=== PATIENT | male | born 1960 | race American Indian/Alaskan Native ===

== ENCOUNTER 2022-03-19 11:08 | Outpatient (CLI) | payer OTHER ==
--- NOTE | 2022-03-19 13:38 | XRay Report ---
BILATERAL KNEES 2 VIEWS EACH INDICATION / CLINICAL INFORMATION: BILATERAL KNEE PAIN. COMPARISON: None available. FINDINGS: BONES / JOINT(S): No acute fracture or subluxation. Mild DJD right knee greatest at the medial compar tment. Moderate DJD left knee greatest at the medial compartment. SOFT TISSUES: Atherosclerotic vascular calcification. ADDITIONAL FINDINGS: None. Signer Name: Julian Polanco MD Signed: 03/19/2022 1:34 PM Workstation Name: [id number]
== END 2022-03-19 11:09 | disposition home or self-care (01) ==
LOC: XRAY 11:08
PROVIDERS: ATTEND Internal Medicine
DX: M17.0 Bilateral primary osteoarthritis of knee (principal); M25.862 Other specified joint disorders, left knee; M25.861 Other specified joint disorders, right knee